=== PATIENT | female | born 1970 | race African-American/Black ===

== ENCOUNTER 2017-05-22 12:14 | Emergency (ER) | payer MEDICAID ==
[~2017-05-22] VITALS: Ht 162.6 cm; Wt 77.7 kg
[2017-05-22 14:40] VITALS: BP 133/65
== END 2017-05-22 15:19 | disposition home or self-care (01) ==
LOC: ER 12:52
DX: R09.81 Nasal congestion (principal); J06.9 Acute upper respiratory infection, unspecified; J45.909 Unspecified asthma, uncomplicated; E05.90 Thyrotoxicosis, unspecified without thyrotoxic crisis or storm; F12.10 Cannabis abuse, uncomplicated
CPT/HCPCS: 71010; 81025; 99283